=== PATIENT | male | born 1975 | race Caucasian/White ===

== ENCOUNTER 2017-10-16 06:44 | Day surgery (SDC) | payer OTHER ==
[~2017-10-16 06:44] MED LIST: Buffered Lidocaine 0.9% SYRIN* 5 ML/SYR SYRINGE INTRADERM ONE
[2017-10-16] MEDS ORDERED: Gelatin ADSORBABLE (OPHTH)* OPHTH.FILM ONE (08:07)
[2017-10-16] MEDS ORDERED: Oxymetazoline 0.05% NASAL SPR* 15 ML BTL ONE (08:07)
[2017-10-16] MEDS ORDERED: Gelfoam 12-7 ADSORBABL SPONGE* 1 EA SPONGE ONE (08:07)
[2017-10-16] MEDS ORDERED: Lidocaine 2% EPI 1:200000 MPF*10-20 ML VIAL ONE (08:07)
[2017-10-16] MEDS ORDERED: Triamcinolone Acetonide* 40 MG/ML 1 ML VIAL ONE (08:14)
[2017-10-16] MEDS ORDERED: fentaNYL* 50 MCG/ML 2 ML VIAL (100 MCG VIAL) ONE (08:25)
[2017-10-16] MEDS ORDERED: fentaNYL* 50 MCG/ML 2 ML VIAL (100 MCG VIAL) IV PRN (08:55)
[2017-10-16] MEDS ORDERED: DiMENhydriNATE IV* 50 MG/ML VIAL IV PUSH PRN (08:55)
[2017-10-16] MEDS ORDERED: Naloxone* 0.4 MG/ML 1 ML VIAL IV PRN (08:55)
[2017-10-16] MEDS ORDERED: oxyCODONE TAB* 5 MG TAB PO PRN (08:55)
[2017-10-16] MEDS ORDERED: Ketorolac INJ* 30 MG/ML 1 ML VIAL IV PRN (08:55)
[2017-10-16] MEDS ORDERED: Acetaminophen TAB* 325 MG PO PRN (08:55)
[2017-10-16] MEDS ORDERED: Ketorolac INJ* 30 MG/ML 1 ML VIAL ONE (09:34)
[2017-10-16] MEDS ORDERED: DiMENhydriNATE IV* 50 MG/ML VIAL ONE (09:34)
[2017-10-16 10:33] VITALS: BP 151/104
--- NOTE | 2017-10-17 03:21 | OP ---
DATE OF OPERATION: 10/16/17 - SDS DATE OF : 71 SURGEON: Nicholas Byers MD PRE-OP DIAGNOSES: 1. Deviated nasal septum. 2. Hypertrophied nasal turbinates. 3. Chronic sinusitis. POST-OP DIAGNOSES: 1. Deviated nasal septum. 2. Hypertrophied nasal turbinates. 3. Chronic sinusitis. OPERATIVE PROCEDURES: 1. Left endoscopic maxillary antrostomy. 2. Septoplasty. 3. Submucosal resection of inferior turbinates. BRIEF HISTORY: This 42-year-old gentleman with longstanding history of nasal dyspnea, chronic symptoms suggestive of sinusitis with hypertrophied turbinates had failed medical management to include topical nasal steroids. DESCRIPTION OF PROCEDURE: The patient was taken to the operating room, general anesthetic given, the patient was intubated with LMA. Nose was decongested with Afrin-placed pledgets. A 0-degree telescope, 30-degree telescope and other endoscopic sinus surgery instruments were utilized. Initially, we turned our attention to the left side. A CT scan was available and was reviewed, there was a large polyp in the left maxillary sinus. I infiltrated 2% lidocaine with epinephrine into the left maxillary antral opening on the middle turbinate region. Uncinate was peeled out anteriorly, microshaver was used to remove it completely. The antrostomy was then enlarged removing some of the posterior fontanel bone. This allowed further access to the antrum. The antrum was copiously irrigated. The previously noted polyp was shaved away. A small piece of Gelfilm and Gelfoam was placed at the middle turbinate spacer. This was soaked with Kenalog. We turned our attention to septoplasty. The septum was infiltrated with 2% lidocaine with epinephrine. Left hemitransfixion incision was then created. Mucoperichondrial flap was elevated. The quadrangular cartilage was disarticulated along the vomer ethmoidal complex and posteriorly along the maxillary crest. A large bony crest was removed with a shaver and chiseled away. The quadrangular cartilage was scored on its concave surface, placed in the midline. The Joselito splints were applied with 2-0 silk. The hemitransfixion incision was closed in a single layer. We turned our attention to the inferior turbinates. A small incision was made in the inferior turbinate mucosa. A small incisional elevation was then carried out. Submucosal resection of small portions of the submucosal tissue including some small portions of the bone. Cauterization was carried out at the base for hemostasis. Once both inferior turbinates were partially resected , the patient was awakened and sent to recovery room in stable condition. Instrument and sponge counts were correct. Blood loss minimal. [id number]/[facility] #: [id number] [facility]
== END 2017-10-16 10:42 | disposition home or self-care (01) ==
LOC: OR 06:44
PROVIDERS: ATTEND Otolaryngology
DX: J34.2 Deviated nasal septum (principal); J34.3 Hypertrophy of nasal turbinates; J32.9 Chronic sinusitis, unspecified; J31.0 Chronic rhinitis; I10 Essential (primary) hypertension; F17.210 Nicotine dependence, cigarettes, uncomplicated; K21.9 Gastro-esophageal reflux disease without esophagitis; F32.9 Major depressive disorder, single episode, unspecified
CPT/HCPCS: A9270-GY; J1240; J1885; J3010; J3301